=== PATIENT | female | born 1990 | race Two or more races ===

== ENCOUNTER 2018-02-27 09:49 | Inpatient (IN) ==
--- NOTE | 2018-02-26 16:51 | P.HPOB ---
History of Present Illness Service: ob Primary Care Physician: UNKNOWN Chief Complaint: desired elective repeat c section History of Present Illness: 27 yo G2P 1001 scheduled for repeat CD at 39w+. Pt had pror cd for failed iol in [facility]; this was at 42 weeks adn infant was 9 lb. She desires elective repeat CD. She transferred care to us at 32 weeks. She had hydronephrosis documented on chart, during u/s at 18wk but review of imaging notes dilation was only 3 mm which is considered normal at that gestational age. Request for third trimester labs submitted several times and were not sent by prior provider. PT states that she was told they were normal and did not need 3 hour gtt. At a 34 week u/s she was noted to have small biometries (HC and FL under 2.5%, AC 80%ile so normal overall EFW of 47 %ile) and weekly bpp and dopplers were initiated. EFW at 37 weeks was 40th %ile but HC and FL were still small. She has had pruritis; normal lft and bile acids. At office visit she has had good movement; denies contractions, lof, or vb. PMH: PCOS PSH: CDx1 SENIOR INTEGRATION DEVELOPER: pcos, infertility ( 2 yr to conceive), lsil pap, denies std OB: G1 11/03/12 M ftcd for failed iol, 9 lb Fam: no h/o defects or genetic disorders - Inpatient Certification I certify that the inpatient services were ordered in accordance with Medicare regulations governing the order. This includes certification that hospital inpatient services are reasonable and necessary and in the case of services not specified as inpatient-only under 42 CFR 419.22(n), that they are appropriately provided as inpatient services in accordance to with the 2-midnight benchmark under 43 CFR 412.3(e) Review of Systems All other systems reviewed negative except as stated in HPI PMFSH - Medical / Surgical Hx Neg / Unobtainable Medical Problems Denied: Yes - Surgical History Surgical History: Surgical History (Last Updated 02/26/18 @ 16:46 by Amy Hargrove MD) History of delivery - Social History I have reviewed the patient's Social History: Yes - Tobacco History Second Hand Smoke Exposure: No Tobacco Use In Past 30 Days: No Smoking Status: Never smoker - Alcohol History How Often Do You Have a Drink Containing Alcohol: Never - Substance Use History Substance History: No History of Abuse - Travel History History of Recent Travel: No Recent Travel in the [place] Within the Last 8 Weeks: No Medications and Allergies Allergies Allergy/AdvReac Type Severity Reaction Status Date / Time No Known Allergies Allergy Unverified 02/26/18 16:46 Exam Vital signs: in office vital signs bp 100/60, wt 146 pounds - Constitutional no acute distress - Routine HEENT Exam Head: Present: normocephalic, atraumatic Eye: Present: EOMI ENT: Present: mucous membranes moist - Routine Neck Exam Present: full ROM - Routine Chest/Breast/Axilla Exam Chest wall: Absent: tenderness - Routine Respiratory Exam Absent: accessory muscle use, decreased breath sounds - Routine Cardiovascular Exam Present: RRR - Routine Abdominal Exam Present: soft. Absent: distended, guarding, firm - Routine Exam Patient deferred: external exam - Routine Extremities Exam Absent: cyanosis, clubbing, edema Caprini VTE Risk Assessment Caprini VTE Risk Assessment: No/Low Risk (score <= 1) Caprini Risk Assessment Model: Point Value = 1 Point Value = 2 Point Value = 3 Point Value = 5 Age 41-60 Minor surgery BMI > 25 kg/m2 Swollen legs Varicose veins or History of unexplained or recurrent spontaneous Oral contraceptives or hormone replacement Sepsis (< 1 month) Serious lung disease, including pneumonia (< 1 month) Abnormal pulmonary function Acute myocardial infarction Congestive heart failure (< 1 month) History of inflammatory bowel disease Medical patient at bed rest Age 61-74 Arthroscopic surgery Major open surgery (> 45 min) Laparoscopic surgery (> 45 min) Malignancy Confined to bed (> 72 hours) Immobilizing plaster cast Central venous access Age >= 75 History of VTE Family history of VTE Factor V Leiden Prothrombin [id number] Lupus anticoagulant Anticardiolipin antibodies Elevated serum homocysteine Heparin-induced thrombocytopenia Other congenital or acquired thrombophilia Stroke (< 1 month) Elective arthroplasty Hip, pelvis, or leg fracture Acute spinal cord injury (< 1 month) Prophylaxis Regimen: Total Risk Factor Score Risk Level Prophylaxis Regimen 0-1 Low Early ambulation 2 Moderate Order ONE of the following: *Sequential Compression Device (SCD) *Heparin 5000 units SQ BID 3-4 Higher Order ONE of the following medications: *Heparin 5000 units SQ TID *Enoxaparin/Lovenox 40 mg SQ daily (WT < 150 kg, CrCl > 30 mL/min) *Enoxaparin/Lovenox 30 mg SQ daily (WT < 150 kg, CrCl > 10-29 mL/min) *Enoxaparin/Lovenox 30 mg SQ BID (WT < 150 kg, CrCl > 30 mL/min) AND/OR *Sequential Compression Device (SCD) 5 or more Highest Order ONE of the following medications: *Heparin 5000 units SQ TID (Preferred with Epidurals) *Enoxaparin/Lovenox 40 mg SQ daily (WT < 150 kg, CrCl > 30 mL/min) *Enoxaparin/Lovenox 30 mg SQ daily (WT < 150 kg, CrCl > 10-29 mL/min) *Enoxaparin/Lovenox 30 mg SQ BID (WT < 150 kg, CrCl > 30 mL/min) AND *Sequential Compression Device (SCD) Assessment and Plan - Diagnosis (1) History of delivery, currently Code(s): O34.219 - Maternal care for unspecified type scar from previous delivery Status: Acute - Plan 27 yo with iup at 39 w+ admitted for repeat CD 1) repeat cd- reviewed procedure and postop care. Still has future desired fertility 2) At risk for iugr- small biometries but normal EFW. Weekly bpp and dopplers normal 3) lsil pap- repeat pp 4) GBS - result pending
[2018-02-27] MEDS ORDERED: ceFAZolin 2 GM Premix Inj 2 GM/50 ML PIGGYBACK IV.SIG PRN (10:29)
[2018-02-27] MEDS ORDERED: Morphine Sulfate PF Inj 5 MG/10 ML Ampul ONE (10:30)
[2018-02-27] MEDS ORDERED: Citric Acid/Sodium Citrate Liq 30 ML UDC PO SCH (10:30)
[2018-02-27] MEDS ORDERED: Sodium Chloride 0.9% 2 ML Flush PRN IV.FLUSH (10:35)
[2018-02-27 11:04] LABS: Baso % (Auto) 0.3 % (0.0-2.0); Eos % (Auto) 0.5 % (0.0-4.0); Hematocrit 41.2 % (35.0-46.0); Hemoglobin 13.8 gm/dL (11.6-15.3); Lymph # (Auto) 2.4 th/mm3 (1.0-4.8); Lymph % (Auto) 24.8 % (9.0-44.0); Mean Corpuscular HGB Conc 33.6 % (32.0-36.0); Mean Corpuscular Hemoglobin 31.6 pg (27.0-34.0); Mean Corpuscular Volume 94.3 fL (80.0-100.0); Mono # (Auto) 0.5 th/mm3 (0.0-0.9); Mono % (Auto) 5.2 % (0.0-8.0); Neut # (Auto) 6.6 th/mm3 (1.8-7.7); Neut % (Auto) 69.2 % (16.0-70.0); Platelet Count 246 th/mm3 (150-450); Red Blood Count 4.37 mil/mm3 (4.00-5.30); Red Cell Distribution Width 14.3 % (11.6-17.2); White Blood Count 9.5 th/mm3 (4.0-11.0)
[2018-02-27 11:28] LABS: Bacteria,Urine Rare /hpf; Bilirubin,Urine Negative (Negative); Clarity,Urine Clear (Clear); Color,Urine Yellow (Yellw/Straw); Glucose,Urine (UA) Negative (Negative); Leukocyte Esterase,Urine Trace (Negative); Mucus,Urine Few /lpf (Occasional); Nitrite,Urine Negative (Negative); Specific Gravity,Urine 1.012 (1.002-1.035); Squamous Epithelial Cell,Urine 3 /hpf (0-5)
[2018-02-27 11:29] LABS: Amphetamine Screen,Urine Neg (Neg); Barbiturate Screen,Urine Neg (Neg); Cannabinoid Screen,Urine Neg (Neg); Cocaine Screen,Urine Neg (Neg)
[2018-02-27 11:36] LABS: Opiate Screen,Urine Neg (Neg)
[2018-02-27] MEDS ORDERED: Naloxone Inj 0.4 MG/ML Vial IV.PUSH PRN (12:15)
[2018-02-27] MEDS ORDERED: Acetaminophen 325 MG Tablet PO PRN (13:44)
[2018-02-27] MEDS ORDERED: Simethicone 80 MG Chew Tablet PO PRN (13:44)
[2018-02-27] MEDS ORDERED: Oxytocin 30 Units/500ml Premix 30 UNITS/500 ML BAG IV.SIG ONE (13:44)
--- NOTE | 2018-02-27 13:54 | P.OBDELI ---
Procedure Note - Pre Op Diagnosis (1) History of delivery, currently - Post Op Diagnosis (1) Pelvic adhesive disease (2) History of delivery, currently Performed by: Amy Hargrove MD Procedure: Repeat Low Transverse Section (scar revision) Indication for Delivery: Desired elective repeat Previous Condition: Other (thin lower uterine segment, adhesion of bladder to uterus) Informed Consent Obtained: For anesthesia, For procedure Confirmed Correct: Patient, Procedure, Site, Time-out taken Anesthesia: Spinal Medication Prior to Procedure: As documented in eMAR Monitoring During Procedure: Blood pressure monitoring, Pulse oximetry Urinary Catheter: Inserted using sterile technique, To dependent drainage, ml urine output (clear) Sterile Preparation: In usual fashion, With 2% chlorexidine (Hibiclens), With drapes to expose affected area - Operative Features Skin Incision: Pfannenstiel Membranes Ruptured: Artificially, Appearance of fluid (clear) Status of Infant: Viable, Nursery present Placenta Delivered: Intact Medications: Antibiotics, Oxytocin Estimated blood loss (mL): 600 Procedure Tolerated: Well Maternal Condition: Stable Baby Condition: Stable Procedure in Detail: Intraoperative findings: Normal tubes and ovaries. Scarring of subcutaneous tissue, fascia and rectus muscles. Adhesion of bladder to lower uterine segment. Complications: none Counts: Correct x 3 Specimens: cord blood Dispo: to pacu Procedure in detail: After review of informed consent, pt was taken to the OR where spinal anesthesia was performed w/o complication. She was placed in a dorsal supine position with a slight left lateral tilt. She had ortiz placed in sterile fashion. SCDs to bilateral extremities. Preoperative antibiotics given preincision. Abdomen and perineum were prepped and draped in sterile fashion. A Pfannenstiel skin incision was made with the scalpel and carried down to the underlying layer of fascia with the bovie. The fascia was incised in the midline; this incision was extended bilaterally w Desai scissors. The superior edge, followed by the inferior edge, of the fascia was grasped with ankur clamps, elevated and from the rectus muscles with desai scissors and bluntly. The rectus muscles were in the midline with the hemostat. Peritoneum was entered with metzenbaum scissors after tenting the peritoneum and this incision was extended to allow for good visualization of the lower uterine segment. Bladder blade was inserted. Adhesions of the bladder were taken down with Metzenbaum scissors. A bladder flap was created with Metzenbaum scissors and further developed digitally. The bladder blade was then replaced. A low transverse uterine incision was made with the scalpel and extended bluntly in a cephalocaudal fashion. Amnion ruptured. Clear amniotic fluid noted. The head was OT, it was flexed and brought to the level of the hysterotomy. Fundal pressure was used to deliver the head, the rest of the body readily followed with fundal pressure. Viable male . Delayed cord clamping of 45 seconds was performed. Baby was handed off to team. Cord blood was collected. IV infusion of pitocin was started immediately after the delivery of the . The placenta was delivered w gentle cord traction and uterine massage. The uterus was exteriorized. The uterine cavity was cleared with moistened laparotomy sponges. The uterus was repaired in one layer with number 1 chromic in a running locked fashion. A second layer was deferred as the bladder was high and concern for incorporating the bladder or creating a fistula due to close proximity. The posterior cul de sac was irrigated and suctioned. The uterus was noted to be hemostatic. It was returned to the abdomen. The anterior cul-de-sac was irrigated and suctioned. The peritoneum was closed with 2-0 chromic in a running fashion. The fascia was closed with number 1 vicryl in a running fashion. Subcutaneous tissue was irrigated and hemostasis obtained w the bovie. The prior scar was excised with the scalpel and the bovie. The subcutaneous tissue was brought together with 2-0 chromic in a running fashion. The skin was closed with 3-0 monocryl in a subcuticular fashion. Steristrips and a sterile dressing were placed. PT was sent to pacu in stable condition. - Infant: Male Male A Infant Delivery Date: 02/27/18 Delivery Time: 12:53 Weight: 3.62 kg Delivery of : Uneventful score (1 min): 9 score (5 min): 9
[2018-02-27] MEDS ORDERED: Oxytocin 30 Units/500ml Premix 30 UNITS/500 ML BAG ONE (14:30)
[2018-02-27] MEDS ORDERED: Influenza (Quadrivalent) Vaccine 0.5 ML Syringe IM ONE (16:00)
[2018-02-27] MEDS ORDERED: Oxytocin 30 Units/500ml Premix 30 UNITS/500 ML BAG IV.SIG PRN (18:44)
[2018-02-27] MEDS ORDERED: Zolpidem Tartrate 5 MG Tablet PO PRN (21:00)
[2018-02-28 05:50] LABS: Baso % (Auto) 0.2 % (0.0-2.0); Eos % (Auto) 0.1 % (0.0-4.0); Hematocrit 37.3 % (35.0-46.0); Hemoglobin 12.6 gm/dL (11.6-15.3); Lymph # (Auto) 2.4 th/mm3 (1.0-4.8); Lymph % (Auto) 19.8 % (9.0-44.0); Mean Corpuscular HGB Conc 33.8 % (32.0-36.0); Mean Corpuscular Volume 94.6 fL (80.0-100.0); Mean Platelet Volume 8.1 fL (7.0-11.0); Mono # (Auto) 0.7 th/mm3 (0.0-0.9); Mono % (Auto) 5.5 % (0.0-8.0); Neut # (Auto) 9.1 th/mm3 (1.8-7.7); Neut % (Auto) 74.4 % (16.0-70.0); Platelet Count 213 th/mm3 (150-450); Red Blood Count 3.95 mil/mm3 (4.00-5.30); Red Cell Distribution Width 14.7 % (11.6-17.2); White Blood Count 12.3 th/mm3 (4.0-11.0)
--- NOTE | 2018-02-28 07:57 | P.PNOB ---
Subjective Post op day: 1 Interval history: pain well controlled, voided Objective Vital Signs/I&O: Vital Signs 02/27/18 11:02 02/27/18 11:03 02/27/18 11:15 Temperature 98.3 F Pulse Rate 84 87 Respiratory Rate 18 Blood Pressure 113/65 92/58 L 02/27/18 13:54 02/27/18 14:15 02/27/18 14:30 Temperature 97.6 F Pulse Rate 74 79 68 Respiratory Rate 18 18 19 Blood Pressure 118/62 123/58 L 131/66 02/27/18 14:45 02/27/18 20:55 02/27/18 23:55 Temperature 97.8 F 98.6 F 98.5 F Pulse Rate 83 83 64 Respiratory Rate 18 16 18 Blood Pressure 131/66 112/59 L 110/57 L 02/28/18 04:40 Temperature 98.6 F Pulse Rate 66 Respiratory Rate 18 Blood Pressure 107/54 L Intake & Output 02/27/18 02/28/18 02/28/18 18:59 06:59 18:59 Weight 62.142 kg Other: Weight On Admission 62 kg Result Diagrams: 02/28/18 05:29 Objective Remarks: GENERAL: Well-nourished, well-developed patient. CARDIOVASCULAR: Regular rate and rhythm without murmurs, gallops, or rubs. RESPIRATORY: Breath sounds equal bilaterally. No accessory muscle use. ABDOMEN/GI: Abdomen soft, non-tender, bowel sounds present. Incision: dressing, Clean, dry and intact. Fundus: Firm, non-tender at umbilicus. GENITOURINARY: Light to moderate bleeding. EXTREMITIES: No cyanosis or edema, non-tender, without signs of DVT. Medications and IVs: Active Medications Acetaminophen (Tylenol) 650 mg PO Q6H PRN PRN Reason: PAIN SCALE 1 TO 2 Last Admin: 02/27/18 20:45 Dose: 650 mg Citric Acid/Sodium Citrate (Sodium Citrate/Citric Acid Liq) 30 ml PO MANAGER MUSIC ROSARIO Stop: 03/03/18 10:29 Last Admin: 02/27/18 12:03 Dose: 30 ml Diphenhydramine HCl (Benadryl) 50 mg PO Q6H PRN PRN Reason: MILD TO MODERATE ITCHING Stop: 02/28/18 12:14 Last Admin: 02/28/18 02:38 Dose: 50 mg Diphenhydramine HCl (Benadryl Inj) 25 mg IV.PUSH Q6H PRN PRN Reason: MILD TO MODERATE ITCHING Stop: 02/28/18 12:14 Last Admin: 02/27/18 16:25 Dose: 25 mg Diphtheria/Pertussis/Tetanus Vacc (Boostrix Vaccine Inj) 0.5 ml IM .ONCE ONE Stop: 02/28/18 16:01 Cefazolin Sodium/Dextrose (Ancef 2 Gm Premix Inj) 2 gm in 50 mls @ 100 mls/hr IV.SIG MANAGER MUSIC PRN PRN Reason: BLEEDING Stop: 03/03/18 10:28 Lactated Ringer's (Lr 1000 Ml Inj) 1,000 mls @ 100 mls/hr IV.CONT .Q10H ROSARIO Stop: 02/28/18 14:43 Oxytocin (Pitocin 30 Units/Ns 500 Ml Premix) 30 units in 500 mls @ 100 mls/hr IV.SIG UNSCH PRN PRN Reason: Heavy bleeding Measles/Mumps/Rubella Vaccine Live (M-M-R Ii Vaccine Inj) 0.5 ml SQ .ONCE ONE Stop: 02/28/18 16:01 Miscellaneous Information ([facility] Nursing Information) 1 each OTHER UNSCH PRN PRN Reason: SEE LABEL COMMENTS Stop: 02/28/18 12:14 Miscellaneous Information ([facility] Nursing Information) 1 each OTHER UNSCH PRN PRN Reason: SEE LABEL COMMENTS Stop: 02/28/18 12:14 Naloxone HCl (Narcan Inj) 0.4 mg IV.PUSH UNSCH PRN PRN Reason: SEE LABEL COMMENTS Stop: 02/28/18 12:14 Ondansetron HCl (Zofran Inj) 4 mg IV.PUSH Q6H PRN PRN Reason: NAUSEA OR VOMITING Oxycodone/Acetaminophen (Percocet 5/325 Mg) 1 tab PO Q4H PRN PRN Reason: PAIN SCALE 3 TO 5 Oxycodone/Acetaminophen (Percocet 5/325 Mg) 2 tab PO Q4H PRN PRN Reason: PAIN SCALE 6 TO 10 Last Admin: 02/28/18 06:23 Dose: 2 tab Simethicone (Mylicon Chew) 80 mg PO QID PRN PRN Reason: FLATULENCE Sodium Chloride (Ns Flush) 2 ml IV.FLUSH BID ROSARIO Sodium Chloride (Ns Flush) 2 ml IV.FLUSH PRN PRN PRN Reason: FLUSH AFTER USING IV ACCESS Zolpidem Tartrate (Ambien) 5 mg PO HS PRN PRN Reason: INSOMNIA Assessment and Plan - Plan POD 1 s/p rcd repeat cd - cont routine supportive care, ambulate, void lsil pap- repeat pp GBS -+ dispo homem on ppd 2-3
[2018-02-28] MEDS ORDERED: Measles/Mumps/Rubella Vaccine Inj 0.5 ML Vial SQ ONE (16:00)
[2018-02-28] MEDS ORDERED: Diphtheria/Tetanus/Pertussis Vaccine Inj 0.5 ML Syringe IM ONE (16:00)
[2018-02-28] MEDS: Sodium Chloride 0.9% 2 ML Flush BID IV.FLUSH SCH (17:28)
--- NOTE | 2018-03-01 07:23 | P.PNOB ---
Subjective Post op day: 2 Interval history: pain well controlled, passing flatus, ambulating, kylah po. desires to go home today Objective Vital Signs/I&O: Vital Signs 02/28/18 07:55 02/28/18 11:47 02/28/18 20:00 Temperature 97.7 F 98.1 F 98.1 F Pulse Rate 80 78 76 Respiratory Rate 18 18 18 Blood Pressure 100/53 L 114/66 116/69 Result Diagrams: 02/28/18 05:29 Objective Remarks: GENERAL: Well-nourished, well-developed patient. CARDIOVASCULAR: Regular rate and rhythm without murmurs, gallops, or rubs. RESPIRATORY: Breath sounds equal bilaterally. No accessory muscle use. ABDOMEN/GI: Abdomen soft, non-tender, bowel sounds present. Incision: Clean, dry and intact. steris in place Fundus: Firm, non-tender at umbilicus. GENITOURINARY: Light to moderate bleeding. EXTREMITIES: No cyanosis or edema, non-tender, without signs of DVT. Medications and IVs: Active Medications Acetaminophen (Tylenol) 650 mg PO Q6H PRN PRN Reason: PAIN SCALE 1 TO 2 Last Admin: 02/27/18 20:45 Dose: 650 mg Citric Acid/Sodium Citrate (Sodium Citrate/Citric Acid Liq) 30 ml PO PHARMACEUTICAL SCIENTIST ROSARIO Stop: 03/03/18 10:29 Last Admin: 02/27/18 12:03 Dose: 30 ml Cefazolin Sodium/Dextrose (Ancef 2 Gm Premix Inj) 2 gm in 50 mls @ 100 mls/hr IV.SIG PHARMACEUTICAL SCIENTIST PRN PRN Reason: BLEEDING Stop: 03/03/18 10:28 Oxytocin (Pitocin 30 Units/Ns 500 Ml Premix) 30 units in 500 mls @ 100 mls/hr IV.SIG UNSCH PRN PRN Reason: Heavy bleeding Ibuprofen (Motrin) 600 mg PO Q6HR PRN PRN Reason: PAIN 1-10 AND/OR FEVER >101F Ondansetron HCl (Zofran Inj) 4 mg IV.PUSH Q6H PRN PRN Reason: NAUSEA OR VOMITING Oxycodone/Acetaminophen (Percocet 5/325 Mg) 1 tab PO Q4H PRN PRN Reason: PAIN SCALE 3 TO 5 Oxycodone/Acetaminophen (Percocet 5/325 Mg) 2 tab PO Q4H PRN PRN Reason: PAIN SCALE 6 TO 10 Last Admin: 03/01/18 06:43 Dose: 2 tab Simethicone (Mylicon Chew) 80 mg PO QID PRN PRN Reason: FLATULENCE Last Admin: 02/28/18 20:40 Dose: 80 mg Sodium Chloride (Ns Flush) 2 ml IV.FLUSH BID ROSARIO Last Admin: 02/28/18 17:28 Dose: Not Given Sodium Chloride (Ns Flush) 2 ml IV.FLUSH PRN PRN PRN Reason: FLUSH AFTER USING IV ACCESS Zolpidem Tartrate (Ambien) 5 mg PO HS PRN PRN Reason: INSOMNIA Assessment and Plan - Diagnosis (1) Status post repeat low transverse section Code(s): Z98.891 - History of uterine scar from previous surgery Status: Acute - Plan POD 2 s/p rcd repeat cd - cont routine supportive care lsil pap- repeat pp GBS -+ dispo home on ppd 2-3 based on infant status
[2018-03-01] MEDS: Ibuprofen 600 MG Tablet PO PRN ×2 (11:31→18:02)
[2018-03-02] MEDS: Ibuprofen 600 MG Tablet PO PRN ×2 (02:20→08:01)
[2018-03-02] MEDS: Sodium Chloride 0.9% 2 ML Flush BID IV.FLUSH SCH (06:04)
[2018-03-02 09:06] VITALS: BP 103/62; PULSE 65; RESP 18; TEMP 98.6
--- NOTE | 2018-03-02 11:05 | P.PNOB ---
Subjective Post op day: 3 Interval history: doing well, discharge held last night as infant had elevated levels of bilirubin and needed phototherapy Objective Vital Signs/I&O: Vital Signs 03/01/18 19:32 03/02/18 08:01 Temperature 99.4 F 98.6 F Pulse Rate 82 65 Respiratory Rate 17 18 Blood Pressure 121/89 103/62 Result Diagrams: 02/28/18 05:29 Objective Remarks: GENERAL: Well-nourished, well-developed patient. CARDIOVASCULAR: Regular rate and rhythm without murmurs, gallops, or rubs. RESPIRATORY: Breath sounds equal bilaterally. No accessory muscle use. ABDOMEN/GI: Abdomen soft, non-tender, bowel sounds present. Incision: Clean, dry and intact. Fundus: Firm, non-tender at umbilicus. GENITOURINARY: Light to moderate bleeding. EXTREMITIES: No cyanosis or edema, non-tender, without signs of DVT. Medications and IVs: Active Medications Acetaminophen (Tylenol) 650 mg PO Q6H PRN PRN Reason: PAIN SCALE 1 TO 2 Last Admin: 02/27/18 20:45 Dose: 650 mg Citric Acid/Sodium Citrate (Sodium Citrate/Citric Acid Liq) 30 ml PO MASTER YACHT ROSARIO Stop: 03/03/18 10:29 Last Admin: 02/27/18 12:03 Dose: 30 ml Cefazolin Sodium/Dextrose (Ancef 2 Gm Premix Inj) 2 gm in 50 mls @ 100 mls/hr IV.SIG MASTER YACHT PRN PRN Reason: BLEEDING Stop: 03/03/18 10:28 Oxytocin (Pitocin 30 Units/Ns 500 Ml Premix) 30 units in 500 mls @ 100 mls/hr IV.SIG UNSCH PRN PRN Reason: Heavy bleeding Ibuprofen (Motrin) 600 mg PO Q6HR PRN PRN Reason: CRAMPING Last Admin: 03/02/18 08:01 Dose: 600 mg Ondansetron HCl (Zofran Inj) 4 mg IV.PUSH Q6H PRN PRN Reason: NAUSEA OR VOMITING Oxycodone/Acetaminophen (Percocet 5/325 Mg) 1 tab PO Q4H PRN PRN Reason: PAIN SCALE 3 TO 5 Oxycodone/Acetaminophen (Percocet 5/325 Mg) 2 tab PO Q4H PRN PRN Reason: PAIN SCALE 6 TO 10 Last Admin: 03/02/18 06:05 Dose: 2 tab Simethicone (Mylicon Chew) 80 mg PO QID PRN PRN Reason: FLATULENCE Last Admin: 02/28/18 20:40 Dose: 80 mg Sodium Chloride (Ns Flush) 2 ml IV.FLUSH BID ROSARIO Last Admin: 03/02/18 06:04 Dose: Not Given Sodium Chloride (Ns Flush) 2 ml IV.FLUSH PRN PRN PRN Reason: FLUSH AFTER USING IV ACCESS Zolpidem Tartrate (Ambien) 5 mg PO HS PRN PRN Reason: INSOMNIA Assessment and Plan - Diagnosis (1) Status post repeat low transverse section Code(s): Z98.891 - History of uterine scar from previous surgery Status: Acute - Plan POD 3 s/p rcd repeat cd - cont routine supportive care lsil pap- repeat pp GBS -+ dispo home on ppd-3 based on infant status
== END 2018-03-02 13:03 | disposition home or self-care (01) ==
LOC: H2E 09:49 → H1EA 15:03
PROVIDERS: ADMIT Obstetrics & Gynecology; ATTEND Obstetrics & Gynecology